=== PATIENT | male | born 1980 | race Caucasian/White ===

== ENCOUNTER 2024-10-10 08:43 | Emergency (ER) | payer SELFPAY ==
[~2024-10-10] VITALS: Ht 175.3 cm; Wt 91.0 kg
--- NOTE | 2024-10-10 10:22 | DVH ---
EXAMINATION: XY L RIB X RAY INDICATION: Chest pain COMPARISON: None TECHNIQUE: 4 views of the left ribs history FINDINGS: No displaced left rib fracture. IMPRESSION: No displaced left rib fracture.
[2024-10-10] MEDS: KETOROLAC TROMETH 60MG/2ML VIAL IM ONE (11:09)
[2024-10-10 11:14] VITALS: BP 134/76; PULSE 72; RESP 17; TEMP 98; O2SAT 96
--- NOTE | 2024-10-10 11:18 | ED.PDOC ---
History of Present Illness HPI Comments 44-year-old male presents with a chief complaint of rib pain s/p wrestling with his children. Patient states that he was wrestling with his children on the floor and thinks he may have fractured a rib. X-Ray shows no acute rib fracture or dislocation the left ribs. Patient reports that the pain is made worse with deep inspiration. Patient reports moderate pain that he rates a 6/10. Patient denies any urinary symptoms or changes. Chief Complaint: Rib Pain Time Seen by MD: 10:54 Reviewed Notes: Nurses Notes, Medications, Allergies Allergies: Coded Allergies: NO KNOWN ALLERGIES (Unverified , 10/10/24) Home Meds Active Scripts Naproxen (Naproxen) 500 Mg Tab, 500 MG PO BIDPC for 10 Days, #20 TAB 0 Refills Prov:SUZIE CHRISTIAN Kenisha ESPINO 10/10/24 Information Source: Patient Mode of Arrival: Ambulatory Severity: Moderate Timing: Days Duration: Since onset Prehospital treatment: None Past Medical History PAST MEDICAL HISTORY: Denies Surgical History: Denies all surgeries Family History Family History: Reviewed,noncontributory to illness Social History Smoker: Non-Smoker Alcohol: Denies ETOH Use Drugs: Denies Drug Use Lives In: Home All Other Systems: Reviewed and Negative ( PER HPI) Physical Exam General Appearance: No Apparent Distress, Normal, Other (LEFT LATERAL RIB PAIN 10-12, NO ABNORMALITIES ON INSPECTION, LOCALIZED TTP) HEENT: Normal ENT Inspection, Pharynx Normal, TMs Normal Neck: Full Range of Motion, Non-Tender, Normal, Normal Inspection Respiratory: Chest Non-Tender, Lungs Clear, No Accessory Muscle Use, No Respir atory Distress, Normal Breath Sounds Cardiovascular: No Edema, No JVD, No Murmur, No Gallop, Normal Peripheral Pulses, Regular Rate/Rhythm Breast Exam: Deferred Gastrointestinal: No Organomegaly, Non Tender, No Pulsatile Mass, Normal Bowel Sounds, Soft Genitalia: Deferred Pelvic: Deferred Rectal: Deferred Extremities: No calf tenderness, Normal capillary refill, Normal inspection, Normal range of motion, Non-tender, No pedal edema Musculoskeletal : Location: Left Extremity Location: Other (RIBS) Apperance: Tenderness Neurologic: Alert, school based therapist II-XII nml as Tested, No Motor Deficits, Normal Affect, Normal Mood, No Sensory Deficits Cerebellar Function: Normal Reflexes: Normal Skin: Dry, Normal Color, Warm Lymphatic: No Adenopathy Was a procedure done? Was a procedure done?: No Differential Dx Considerations may include: Rib fracture, displaced rib, pneumothorax, X-Ray, Labs, Meds, VS Vital Signs Date Time Temp Pulse Resp B/P (MAP) Pulse Ox O2 Delivery O2 Flow Rate FiO2 10/10/24 11:14 98.0 72 17 134/76 (95) 96 98.0 10/10/24 11:14 72 17 96 Room Air 10/10/24 09:07 97.7 73 19 134/84 (101) 96 97.7 Current Medications Medications (Trade) Dose Ordered Sig/Quinten Route Start Time Stop Time Status Last Admin Ketorolac Tromethamine (Toradol Injection) 60 mg ONCE ONCE IM 10/10/24 11:15 10/10/24 11:16 DC 10/10/24 11:09 X-Ray, Labs, Meds, VS Comment 44-year-old male presents with a chief complaint of rib pain x s/p wrestling with children. Patient arrives alert and oriented, ABC's intact, afebrile, vital signs stable, saturating well in room air Diagnostic imaging ordered by me and results interpreted by radiology : LEFT RIB X-RAY 1. No displaced left rib fracture. Patient was given: TORADOL IM. Tolerated medications with no adverse reaction. On reevaluation, patient had symptomatic improvement. Patient is stable for discharge at this time. External notes reviewed. Test results and diagnostic imaging interpreted. All diagnostic findings, discharge care, education and instructions provided Follow-up with PCP in 2 to 3 days Patient verbalized understanding and agreed to treatment plan Vital signs stable, afebrile, no acute distress noted Patient ambulatory with strong steady gait Advised to return precautions for any new or worsening symptoms, return to ER immediately for re-evaluation Patient is aware that the purpose of this visit was for an acute medical emergency requiring emergent stabilization. Chronic conditions, including malignancies have not been ruled out. Patient is instructed to follow up with PCP as directed and discharge instructions for continued care and workup. If unable to arrange follow-up, patient is to return to the emergency department for reassessment. Patient (parent or legal guardian if applicable) was given verbal and written discharge instructions and acknowledges understanding. Additional MDM Review of External, Non-ED records: External records reviewed. Discussion with independent historian (EMS, family) history obtained from the patient/parents (if applicable) at bedside Chronic conditions affecting care: None Social determinants of health affecting care: None Consideration of admission (observation or admission): I considered escalation of care to admission for this patient, however given the reassuring workup, the patient is safe for outpatient management. Discussion with the Radiology: No Tests considered but not performed: Prescription medication considered but not given: Time of 1ST Reevaluation: 11:24 Reevaluation 1ST: Improved Patient Education/Counseling: Diagnosis, Treatment, Prognosis Family Education/Counseling: No Family Present SEPSIS Sepsis Screen Date sepsis recognized/suspect: Oct 10, 2024 Time Sepsis recognized/suspect: 906 Recent Procedure: No On Antibiotic Therapy: No Respiratory Rate >20: No Heart Rate >90: No Temp<36 C (96.8 F) or >38.3 C: No SBP <90 or MAP <65 mmHG: No New Acute Mental Status Change: No Is the patient on CPAP, BIPAP,: No Physician Orders L Rib X Ray (10/10/24 09:46) Vital Signs Date Time Temp Pulse Resp B/P (MAP) Pulse Ox O2 Delivery O2 Flow Rate FiO2 10/10/24 11:14 98.0 72 17 134/76 (95) 96 98.0 10/10/24 11:14 72 17 96 Room Air 10/10/24 09:07 97.7 73 19 134/84 (101) 96 97.7 Departure 1 Departure Time of Disposition: 11:21 Impression: Primary Impression: Rib pain on left side Disposition: 01 HOME / SELF CARE / HOMELESS Condition: Fair e-Prescriptions Naproxen (Naproxen) 500 Mg Tab 500 MG PO BIDPC for 10 Days, #20 TAB 0 Refills Prov: SUZIE CHRISTIAN NP 10/10/24 Critical Care Note Critical Care Time?: No Stability Stability form required: No Heart Score Heart Score: Heart Score Response (Comments) Value History N/A 0 EKG N/A 0 Age N/A 0 Risk Factors N/A 0 Troponin N/A 0 Total 0 I personally scribed for SUZIE CHRISTIAN NP ([email or web address]) on 10/10/24 at 11:18. Electronically submitted by Augusto Donato ([email or web address]). SUZIE CHRISTIAN NP Oct 10, 2024 11:18
[2024-10-10] MEDS ORDERED: NAPR-746 PO (11:21)
== END 2024-10-10 11:29 | disposition home or self-care (01) ==
LOC: ER 08:43
DX: R07.81 Pleurodynia (principal)
CPT/HCPCS: 71101; 96372; 99283; J1885